=== PATIENT | male | born 1995 | race Two or more races ===

== ENCOUNTER 2018-03-04 21:55 | Emergency (ER) | payer SELFPAY ==
[~2018-03-04] VITALS: Ht 162.6 cm; Wt 59.0 kg
--- NOTE | 2018-03-04 23:07 | NUR ---
ALEX, AMBULATORY TO ER CH 1 PT REQUEST FOR DAVID NAQVI PT STATES " I FEEL DIFFERENT" . DENIES SI/HI. ADMITS TO ETOH AND SMOKING MARIJUANA. PT AOX3 RR EVEN AND UNLABORED. NO SOB NOTED. NAD NOTED. NO NVD AT THIS TIME. PT WAITING FOR MD NAQVI.
--- NOTE | 2018-03-04 23:17 | NUR ---
AIRPLANE PATROL PILOT DEGRASSE AT BEDSIDE FOR EVAL.
[2018-03-04 23:26] VITALS: BP 136/78
== END 2018-03-04 23:26 | disposition home or self-care (01) ==
LOC: ER 21:59
DX: F32.9 Major depressive disorder, single episode, unspecified (principal); F17.200 Nicotine dependence, unspecified, uncomplicated; F12.10 Cannabis abuse, uncomplicated; Z59.0 Homelessness
CPT/HCPCS: 99284; 99406; A4606; Z7610